=== PATIENT | male | born 1985 | race Two or more races ===

== ENCOUNTER 2020-04-16 15:23 | Outpatient (REF) | payer MEDICAID, SELFPAY ==
--- NOTE | 2020-04-16 15:42 | ECG_ITS ---
Test Reason : CHEST PAIN Blood Pressure : / mmHG Vent. Rate : 062 BPM Atrial Rate : 062 BPM P-R Int : 162 ms QRS Dur : 086 ms QT Int : 384 ms P-R-T Axes : 026 069 050 degrees QTc Int : 389 ms Normal sinus rhythm Normal ECG No previous ECGs available Referred By: Ethel Peñaloza Electronically Signed By:SANJU FOX
--- NOTE | 2020-04-16 15:58 | XR_ITS ---
EXAMINATION: XR CHEST 2 VIEWS CLINICAL INFORMATION: Chest pain. COMPARISON: None. TECHNIQUE: Frontal and lateral views of the chest were obtained. FINDINGS: The heart, great vessels, pulmonary vasculature and mediastinum are normal. The lungs show no focal infiltrate, effusion or pneumothorax. There is no acute osseous abnormality. XR/XR chest 2V IMPRESSION: No active cardiopulmonary disease.
== END 2020-04-16 15:24 | disposition home or self-care (01) ==
LOC: HO.XRAY 15:23
PROVIDERS: PCP Registered Nurse Community Health; Visit Provider Registered Nurse Community Health
DX: R07.9 Chest pain, unspecified (principal); Z92.89 Personal history of other medical treatment
CPT/HCPCS: 71046; 93005

== ENCOUNTER 2020-04-28 16:48 | Outpatient (REF) | payer MEDICAID, SELFPAY | END 2020-04-28 16:49 | disposition home or self-care (01) | LOC: HO.LAB 16:48 | PROVIDERS: Visit Provider Internal Medicine | DX: Z20.828 Contact with and (suspected) exposure to other viral communicable diseases (principal) | CPT/HCPCS: C9803; U0003 ==